=== PATIENT | female | born 1965 | race African-American/Black ===

== ENCOUNTER 2019-11-15 04:51 | Emergency (ER) | payer OTHER, MEDICAID ==
[~2019-11-15] VITALS: Ht 160 cm; Wt 55.0 kg
[2019-11-15] MEDS ORDERED: LORAZEPAM 2MG/ML CPJ ONE (05:07)
[2019-11-15] MEDS ORDERED: HALOPERIDOL LACTATE 5MG/ML VIAL IM ONE ×2 (05:08→05:15)
[2019-11-15] MEDS ORDERED: LORAZEPAM 2MG/ML CPJ IM ONE (05:15)
[2019-11-15 06:16] LABS: BASOPHILS % 0.5 % (0.0-2.0); EOSINOPHILS % 0.2 % (0.0-5.0); HEMATOCRIT. 32.8 % (36.0-48.0); HEMOGLOBIN. 11.3 g/dL (12.0-16.0); LYMPHOCYTES % 10.1 % (20.0-50.0); MEAN CORPUSCULAR HEMOGLOBIN 28.5 pg (28.0-32.0); MEAN CORPUSCULAR VOLUME 82.6 fL (81.0-99.0); MEAN PLATELET VOLUME 7.3 fl (7.4-10.4); MONOCYTES % 6.8 % (2.0-8.0); NEUTROPHILS % 82.4 % (40.0-76.0); PLATELET 234 x1000/uL (130-400); RED BLOOD CELL COUNT 3.97 mill/uL (4.2-5.4); RED CELL DISTRIBUTION WIDTH 13.6 % (11.6-14.6)
[2019-11-15 06:26] LABS: CHLORIDE 110 mEq/L (98-107)
[2019-11-15 06:30] LABS: ETHANOL BLOOD < 10 mg/dL
[2019-11-15 14:21] LABS: CLARITY URINE CLEAR (CLEAR); COLOR URINE YELLOW (YELLOW); KETONES URINE 2+ (NEGATIVE); LEUKOCYTE ESTERASE URINE TRACE (NEGATIVE); NITRITE URINE NEGATIVE (NEGATIVE); OCCULT BLOOD URINE NEGATIVE (NEGATIVE); PROTEIN URINE NEGATIVE (NEGATIVE); SPECIFIC GRAVITY URINE 1.017 (1.005-1.030); UROBILINOGEN URINE 0.2 E.U./dL (0.2-1.0)
[2019-11-15 14:40] LABS: *AMPHETAMINES SCREEN URINE NEGATIVE (NEGATIVE); *BARBITURATES SCREEN URINE NEGATIVE (NEGATIVE); *BENZODIAZEPINES SCREEN URINE NEGATIVE (NEGATIVE); *COCAINE SCREEN URINE NEGATIVE (NEGATIVE)
[2019-11-15 14:41] LABS: CANNABINOID URINE SCREEN NEGATIVE (NEGATIVE); METHADONE URINE SCREEN NEGATIVE (NEGATIVE); OPIATES URINE SCREEN NEGATIVE (NEGATIVE); PHENCYCLIDINE URINE SCREEN NEGATIVE (NEGATIVE)
[2019-11-15] MEDS: QUETIAPINE FUMARATE 25MG TABLET PO SCH (18:00)
[2019-11-15] MEDS ORDERED: LORAZEPAM 1MG TABLET PO ONE (18:00)
[2019-11-16] MEDS: QUETIAPINE FUMARATE 25MG TABLET PO SCH (08:18)
[2019-11-16] MEDS ORDERED: LORAZEPAM 1MG TABLET PO ONE (16:15)
[2019-11-16 21:48] VITALS: BP 124/76
== END 2019-11-16 22:18 ==
LOC: ER 04:51
DX: F23 Brief psychotic disorder (principal); F30.2 Manic episode, severe with psychotic symptoms; R45.850 Homicidal ideations; R45.851 Suicidal ideations; Z78.1 Physical restraint status; Z75.1 Person awaiting admission to adequate facility elsewhere
CPT/HCPCS: 36415; 80053; 80305; 80307; 80320; 80329; 81003; 84443; 85025; 96372; 99285; J1630; J2060; G0480